=== PATIENT | female | born 1980 | race Caucasian/White ===

== ENCOUNTER 2016-10-07 08:12 | Day surgery (SDC) | payer OTHER ==
[~2016-10-07] VITALS: Ht 172.7 cm; Wt 125.0 kg
[~2016-10-07 08:12] MED LIST: CARISOPRODOL350 MG; CITRATE OF MAG296 ML PO; CYMBALTA30 MG PO; DAILY MULTIPLE1 EACH PO; DILAUDID2 MG PO; ENDOCET 5-3251 EACH PO; FISH OIL 1,0001 EAC7 PO; FLUOXETINE HCL20 M1; IBUPROFEN400 MG PO; IBUPROFEN800 MG PO; MAGNESIUM OXID200 MG PO; MAGNESIUM250 MG PO; OXAYDO7.5 MG PO; PERCOCET 7.51 TABLET PO; PREDNISONE20 MG; WELLBUTRIN XL150 MG PO
[2016-10-07 09:02] VITALS: BP 119/64
[2016-10-07 13:46] VITALS: BP 130/68
[2016-10-07 14:20] VITALS: BP 128/62
[2016-10-10 10:29] LABS: INTERNAL CONTROL VALID? YES
== END 2016-10-07 14:35 | disposition home or self-care (01) ==
LOC: SDC 08:12
PROVIDERS: Anesthesiology
DX: M50.123 Cervical disc disorder at C6-C7 level with radiculopathy (principal); Z98.1 Arthrodesis status; E66.9 Obesity, unspecified; Z68.41 Body mass index [BMI] 40.0-44.9, adult
CPT/HCPCS: 72020; 76000; 84703; C1713; J0330; J0690; J1100; J1170; J1885; J2250; J2405; J2710; J2765; J3010

== ENCOUNTER → 2018-02-02 | Outpatient (CLI) | payer OTHER | END | disposition home or self-care (01) | LOC: NUC 08:16 | DX: R68.81 Early satiety (principal) | CPT/HCPCS: 78264; A9541 ==